=== PATIENT | female | born 1945 | race American Indian/Alaskan Native ===

== ENCOUNTER 2018-02-18 12:55 | Outpatient (CLI) | payer MEDICARE ==
--- NOTE | 2018-02-20 18:59 | Magnetic Resonance Report ---
MR scan of the cranium was performed without contrast. Pulse sequences included: 1. T1 weighted sagittal and axial images without contrast 2. T2 weighted axial and coronal images 3. FLAIR axial images 4. Diffusion-weighted axial images 5. Apparent diffusion coefficient images Views of the posterior fossa showed a normal craniocervical junction. Cerebellar pontine angles were normal with normal seventh-eighth nerve complexes. Brainstem and cerebellum were normal. The ventricular system showed no dilatation or distortion. Images of the hemispheres showed enlargement of the Sylvian fissures more on the left. Atrophy and large subdural spaces were seen over the parietal lobes and the frontal lobes. Hippocampal regions were unremarkable. Numerous areas of increased signal were present in the stacy radiata consistent with araiosis. Sinuses, flow voids in the [place] of [place], orbits, and basal ganglia were normal. He had a partially empty sella. Impression: Abnormal MR scan of the cranium without contrast. 1. 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
== END 2018-02-18 12:56 | disposition home or self-care (01) ==
LOC: SPVIMAG 12:55
PROVIDERS: ATTEND Specialist
DX: G31.89 Other specified degenerative diseases of nervous system (principal); R56.9 Unspecified convulsions; R93.0 Abnormal findings on diagnostic imaging of skull and head, not elsewhere classified
CPT/HCPCS: 70551